=== PATIENT | female | born 1955 | race Caucasian/White ===

== ENCOUNTER 2017-12-05 09:36 | Outpatient (CLI) | payer OTHER ==
--- NOTE | 2017-12-05 12:57 | Mammography Report ---
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 Postoperative and posttreatment changes in the right breast and post biopsy changes in the left breast are noted. Coarse and punctate, typically benign calcifications are present. No suspicious masses, clustered microcalcifications, or regions of architectural distortion are identified. IMPRESSION: Probable benign postoperative and posttreatment changes in the right breast. RECOMMENDATION: Diagnostic right mammogram in 6 months. BIRADS CATEGORY 3: Probable benign findings STANDARD QUALIFYING STATEMENTS: 1. This examination was reviewed with the aid of Computer-Aided Detection (CAD). 2. A negative or benign imaging report should not delay biopsy if clinically suspicious findings are present. Consider surgical consultation if warrented. More than 5% of cancers are not identified by imaging. 3. Dense breasts may obscure an underlying neoplasm.
== END 2017-12-05 09:37 | disposition home or self-care (01) ==
LOC: DI 09:36
PROVIDERS: ATTEND Internal Medicine
DX: N64.89 Other specified disorders of breast (principal); Z85.3 Personal history of malignant neoplasm of breast
CPT/HCPCS: 77066

== ENCOUNTER 2018-02-25 13:32 | Emergency (ER) | payer OTHER ==
[2018-02-25] MEDS ORDERED: LIDOCAINE 2% 10 ML MDV SUBQ STA (13:51)
--- NOTE | 2018-02-25 13:54 | ED Physician Documentation ---
PD HPI UPPER EXT INJURY - Stated complaint Stated Complaint: FINGER LACERATION - Chief complaint Chief Complaint: Laceration - History obtained from History obtained from: Patient, Family - History of Present Illness Location: Right, Finger (index) Type of injury: Laceration (drill vs index finger) Where injury occurred: Home Timing - onset: Today Timing - duration: Hours (1) Timing - details: Abrupt onset Pain level max: 5 Pain level now: 5 Improved by: Rest, Immobilization Worsened by: Moving, Palpating Associated symptoms: No: Weakness, Numbness, Tingling, Swelling Contributing factors: No: Anticoagulated Similar symptoms before: Has not had sx before - Additonal information Additional information: pt is right handed. Td UTD 2013 Review of Systems Constitutional: denies: Fever, Chills Respiratory: denies: Cough Musculoskeletal: denies: Neck pain, Back pain Neurologic: denies: Focal weakness, Numbness PD PAST MEDICAL HISTORY - Past Medical History Cardiovascular: Hypertension Respiratory: None Neuro: None Endocrine/Autoimmune: None GI: None HAND PATCHER: None, Breast cancer : None HEENT: None Psych: None Musculoskeletal: None Derm: None - Past Surgical History /HAND PATCHER: Other - Allergies Allergies/Adverse Reactions: Allergies Allergy/AdvReac Type Severity Reaction Status Date / Time No Known Drug Allergies Allergy Verified 02/25/18 13:45 - Social History Does the pt smoke?: No Smoking Status: Never smoker Does the pt drink ETOH?: Yes Does the pt have substance abuse?: No - Immunizations Immunizations are current?: Yes - POLST Patient has POLST: No PD ED PE NORMAL - Vitals Vital signs reviewed: Yes - General General: Alert and oriented X 3, No acute distress - Derm Derm: Warm and dry - Extremities Extremities: Other (R index finger - flap laceration at MCP joint. FROM tendon tested vs resistance. NVI) - Neuro Neuro: Alert and oriented X 3 Results - Vitals Vitals: Vital Signs - 24 hr 02/25/18 13:38 Temperature 36.2 C L Heart Rate 72 Respiratory 16 Rate Blood Pressure 128/67 O2 Saturation 100 Oxygen O2 Source Room air - Rads (name of study) R index finger laceration Radiology: Prelim report reviewed, EMP read contemporaneously, See rad report (Soft tissue injury involving proximal palmar aspect of index finger. No bone injury seen. No retained foreign body identified. Exam otherwise as above. ) Procedures - Laceration (location) R index finger laceration Length in cm: 3 Wound type: Flap Neurovascular status: Sensory intact, Motor intact, Vascular intact Tendon involvement: Tendon intact Skin layer closure: Nylon, Size #-0 - enter number (4), Sutures - enter # (9) Other: Patient tolerated well, No complications, Neurovascular intact, Tetanus UTD Complexity: Simple PD MEDICAL DECISION MAKING - ED course Complexity details: reviewed results, re-evaluated patient, considered differential, d/w patient ED course: Patient is a 62-year-old female with a flap laceration to the right index finger. This was repaired. Tolerated well. No tendon injury. Neurovascularly intact. Warnings of infection and instructions on wound care given at bedside. Also counseled on how to minimize scarring. Patient counseled regarding signs and symptoms for which I believe and urgent re-evaluation would be necessary. Patient with good understanding of and agreement to plan and is comfortable going home at this time This document was made in part using voice recognition software. While efforts are made to proofread this document, sound alike and grammatical errors may occur. Tetanus is up-to-date - Sepsis Event Vital Signs: Vital Signs - 24 hr 02/25/18 13:38 Temperature 36.2 C L Heart Rate 72 Respiratory 16 Rate Blood Pressure 128/67 O2 Saturation 100 Oxygen O2 Source Room air Departure - Departure Disposition: 01 Home, Self Care Clinical Impression: Finger laceration Qualifiers: Encounter type: initial encounter Finger: index finger Damage to nail status: without damage Foreign body presence: without foreign body Laterality: right Qualified Code(s): S61.210A - Laceration without foreign body of right index finger without damage to nail, initial encounter Condition: Good Instructions: ED Laceration Hand Follow-Up: BLAZE WYMAN MD [Primary Care Provider] - (in 14 days for suture removal) Comments: You can apply antibiotic ointment twice daily. Keep the wound clean. Return if you notice redness swelling or drainage from the wound. Your x-rays do not show any acute abnormality today. Your sutures should be removed in 2 weeks with your doctor. Discharge Date/Time: 02/25/18 15:36
[2018-02-25 14:42] VITALS: BP 118/69
--- NOTE | 2018-02-25 14:51 | XRAY Report ---
Reason: index finger vs drill Procedure Date: 02/25/2018 Accession Number: [id number] / [id number] Procedure: XR - Finger(s) RT CPT Code: FULL RESULT: EXAM: RIGHT/LEFT 1st/2nd/3rd/4th/5th DIGIT RADIOGRAPHY EXAM DATE: 02/25/2018 02:24 PM. CLINICAL HISTORY: Index finger vs drill. COMPARISON: None. TECHNIQUE: 3 views. FINDINGS: Bones: Normal. No fracture or bone lesion. Joints: Mild degenerative arthritic change at the distal greater than proximal interphalangeal joint. MCP joint unremarkable. Soft Tissues: Soft tissue laceration involving the palmar aspect of second finger proximally. Soft tissue swelling. No retained radiopaque foreign body identified. Small amount of air in soft tissue. IMPRESSION: 1. Soft tissue injury involving proximal palmar aspect of index finger. 2. No bone injury seen. No retained foreign body identified. 3. Exam otherwise as above. RADIA
[2018-02-25] MEDS ORDERED: BACITRACIN OINT TOP STA (15:11)
== END 2018-02-25 15:36 | disposition home or self-care (01) ==
LOC: ED 13:32
DX: S61.210A Laceration without foreign body of right index finger without damage to nail, initial encounter (principal); W29.8XXA Contact with other powered hand tools and household machinery, initial encounter; Y92.009 Unspecified place in unspecified non-institutional (private) residence as the place of occurrence of the external cause
CPT/HCPCS: 12002; 73140; 99282; 99283; A9270

== ENCOUNTER 2018-11-17 09:24 | Outpatient (CLI) | payer MEDICARE, OTHER ==
--- NOTE | 2018-11-17 11:11 | Mammography Report ---
Reason: 2 YRS POST LUMPECTOMY Procedure Date: 11/17/2018 Accession Number: [id number] / [id number] Procedure: TOM - Diagnostic Dig RT CPT Code: FULL RESULT: EXAM: Diagnostic Dig RT DATE: 11/17/2018 10:30 AM CLINICAL HISTORY: Diagnostic examination. History of nulliparity and personal history of left breast cancer status post lumpectomy in 2017. TECHNIQUE: (R) - Right right CC, spot magnified CC, laterally exaggerated CC, MLO, ML, and spot magnified ML views are obtained. COMPARISON: 06/22/2018 and 12/05/2017. PARENCHYMAL PATTERN: (D) - The breast(s) demonstrate(s) heterogeneously dense fibroglandular parenchyma. FINDINGS: The right breast demonstrates expected interval evolution of post lumpectomy findings, probably benign. There are no suspicious masses, calcifications, or areas of distortion. IMPRESSION: Probably Benign. BI-RADS category 3. RECOMMENDATION: (12MOS) - Recommend 12 month follow-up exam. BI-RADS CATEGORY: (3) - Probably Benign. STANDARD QUALIFYING STATEMENTS: 1. This examination was not reviewed with the aid of Computer-Aided Detection (CAD). 2. A negative or benign imaging report should not preclude biopsy if clinically suspicious findings are present. 3. Dense breasts may obscure an underlying neoplasm. 4. This examination was reviewed with the aid of 3D breast imaging (tomosynthesis).
== END 2018-11-17 09:25 | disposition home or self-care (01) ==
LOC: DI 09:24
PROVIDERS: ATTEND Internal Medicine
DX: R92.8 Other abnormal and inconclusive findings on diagnostic imaging of breast (principal); Z85.3 Personal history of malignant neoplasm of breast
CPT/HCPCS: 77065; G0279

== ENCOUNTER 2018-11-25 10:11 | Outpatient (CLI) | payer MEDICARE, OTHER ==
--- NOTE | 2018-11-26 11:47 | MRI Report ---
Reason: BACK PAIN, RT GROIN PAIN >2YRS Procedure Date: 11/25/2018 Accession Number: [id number] / [id number] Procedure: MRI - Lumbar Spine W/O CPT Code: FULL RESULT: EXAM: MRI LUMBAR SPINE WITHOUT CONTRAST EXAM DATE: 11/25/2018 11:19 AM. CLINICAL HISTORY: Back pain, right groin pain 2 years. COMPARISON: LUMBAR SPINE 2 VIEW 11/23/2018 11:08 AM. TECHNIQUE: Multiplanar, multisequence T1-weighted and fluid-sensitive sequences of the lumbar spine from T12 to S1 without contrast. Other: None. FINDINGS: Spinal Canal: The conus terminates at L1. The conus medullaris and cauda equina are unremarkable. Alignment: Approximate 20 degrees curvature convex left between T11 and L3. Slight lower lumbar curvature convex right. No spondylolisthesis. Bone Marrow: Five [id number] lumbar vertebral bodies are assumed. No fracture. No destructive bone lesion. Small amount of diskogenic edema anteriorly on the left at L4-L5 and to a lesser degree L5-S1. Disk Levels/Facets: T12-L1: Unremarkable. L1-L2: Mild facet arthropathy. No stenosis. L2-L3: Mild facet arthropathy. Small broad-based foraminal protrusions. No stenosis. L3-L4: Mild facet arthropathy. Small broad-based foraminal protrusions without significant stenosis. L4-L5: Slight annular disk bulge and mild facet arthropathy without significant stenosis. L5-S1: Mild bilateral facet arthropathy and minimal disk bulge. No significant stenosis. Musculature: Normal. No edema or fatty atrophy. Other: The partially visualized retroperitoneum is unremarkable. IMPRESSION: 1. Thoracolumbar curvature convex left and lower lumbosacral curvature convex right. 2. Mild multilevel degenerative disk and facet arthropathy without significant associated canal or foraminal stenosis. Comment: The following findings are so common in adults without low back pain that while we report their presence, they must be interpreted with caution and in the context of the clinical situation. (Reference Lawrencek et al, Spine 2001) Prevalence of findings in patients without low back pain: Disk degeneration (any evidence): 92% Disk desiccation/T2 signal loss: 83% Disk height loss: 56% Disk bulge: 64% Disk protrusion: 32% Annular tear/high intensity zone: 38% RADIA
== END 2018-11-25 10:12 | disposition home or self-care (01) ==
LOC: DI 10:11
PROVIDERS: ATTEND Orthopaedic Surgery
DX: M51.36 Other intervertebral disc degeneration, lumbar region (principal); M25.551 Pain in right hip
CPT/HCPCS: 72148

== ENCOUNTER 2019-01-07 07:01 | Day surgery (SDC) | payer MEDICARE, OTHER ==
[~2019-01-07 07:01] MED LIST: CYCLOPENTOLATE 1% OPHTH DROPS 2 ML ONE; KETOROLAC 0.45% OPHTH DROPS ONE; PHENYLEPHRINE 2.5% OPHTH 2 ML DROPS ONE; PROPARACAINE 0.5% OPHTH DROPS 15 ML ONE
[2019-01-07] MEDS ORDERED: LACTATED RINGERS 500 ML IV ONE (07:17)
[2019-01-07] MEDS ORDERED: PHENYLEPHRINE 2.5% OPHTH 2 ML DROPS LEFTEYE ONE (07:20)
[2019-01-07] MEDS ORDERED: KETOROLAC 0.45% OPHTH DROPS LEFTEYE ONE (07:20)
[2019-01-07] MEDS ORDERED: PROPARACAINE 0.5% OPHTH DROPS 15 ML LEFTEYE ONE (07:20)
[2019-01-07] MEDS ORDERED: CYCLOPENTOLATE 1% OPHTH DROPS 2 ML LEFTEYE ONE (07:20)
--- NOTE | 2019-01-07 07:43 | ANESTHESIA ---
Pre-Anesthesia VS, & Labs - Diagnosis L senile combined cataract - Procedure L laser assisted cataract extraction w IOL Vital Signs: Temp Pulse Resp BP Pulse Ox 36.1 C L 64 18 149/87 H 99 01/07/19 07:17 01/07/19 07:17 01/07/19 07:17 01/07/19 07:17 01/07/19 07:17 Height 5 ft 4 in Weight (kg) 62.6 kg Body Mass Index 22.3 - NPO >8 hours - Is Patient ?: No Home Medications and Allergies Home Medications: Ambulatory Orders Citalopram Hydrobromide [Citalopram HBr] 20 mg PO DAILY 01/06/19 Losartan Potassium 25 mg PO DAILY 01/06/19 Raloxifene HCl 60 mg PO DAILY 01/06/19 Citalopram Hydrobromide [Citalopram HBr] 20 mg PO DAILY 01/06/19 Losartan Potassium 25 mg PO DAILY 01/06/19 Raloxifene HCl 60 mg PO DAILY 01/06/19 Allergies/Adverse Reactions: Allergies Allergy/AdvReac Type Severity Reaction Status Date / Time No Known Drug Allergies Allergy Verified 01/07/19 07:17 Anes History & Medical History - Anesthetic History Anesthesia Complications: reports: No previous complications Family history of Anesthesia Complications: Denies Family history of Malignant Hyperthermia: Denies - Medical History Cardiovascular: reports: Hypertension Pulmonary: reports: None Gastrointestinal: reports: None Urinary: reports: None Neuro: reports: None Musculoskeletal: reports: None Endocrine/Autoimmune: reports: None Blood Disorders: reports: None Skin: reports: None Smoking Status: Never smoker - Surgical History General: Colonoscopy Gynecologic: Hysterectomy, Other Exam General: Alert, Oriented x3, Cooperative Dental: WNL Mouth Openin Fingerbreadth Neck Mobility: Normal Mallampati classification: II Thyromental Distance: 4-6 cm Respiratory: Lungs clear, Normal breath sounds, No respiratory distress Cardiovascular: Regular rate Neurological: Normal speech Mental/Cognitive Status: Alert/Oriented X3, Normal for patient Cognitive Status: Within normal limits Plan Anesthesia Type: MAC Consent for Procedure(s) Verified and Reviewed: Yes Code Status: Attempt Resuscitation ASA classification: 2-Mild systemic disease Is this case an emergency?: No
[2019-01-07] MEDS ORDERED: MIDAZOLAM 2 MG/2 ML VIAL IVP ONE (09:00)
[2019-01-07] MEDS ORDERED: BRIMONIDINE 0.2% OPHTH DROPS 5 ML OPTH ONE (09:07)
[2019-01-07] MEDS ORDERED: CHONDR SULF/HYALURONATE SYRINGE IO ONE (09:07)
[2019-01-07] MEDS ORDERED: EPINEPHrine 1 MG/ML AMP IVP ONE (09:07)
[2019-01-07] MEDS ORDERED: TIMOLOL 0.5% OPHTH DROPS OPTH ONE (09:07)
[2019-01-07] MEDS ORDERED: BSS/LIDOCAINE/EPINEPHRINE 1 ML SYRINGE IO ONE (09:08)
[2019-01-07] MEDS ORDERED: TRIAMCIN/MOXIFLOX OPHTHALMIC 0.6 ML VIAL IO ONE (09:08)
[2019-01-07] MEDS ORDERED: VANCOMYCIN OPHTHALMI 8MG/0.8ML 8 MG/0.8 ML SYRINGE IO ONE (09:08)
[2019-01-07 09:33] VITALS: BP 134/80
--- NOTE | 2019-01-07 10:52 | OPERATIVE REPORT ---
DATE OF SERVICE: 01/07/2019 Physician: Vaughn Hartley MD PREOPERATIVE DIAGNOSIS: Visually significant cataract, left eye. This was her first cataract surger y. POSTOPERATIVE DIAGNOSIS: Visually significant cataract, left eye. This was her first cataract surge ry. DESCRIPTION OF PROCEDURE: Phacoemulsification with posterior chamber intraocular lens implant, left eye with laser assist. SURGEON: Vaughn Hartley MD ANESTHESIA: Monitored anesthesia care. COMPLICATIONS: None. OPERATIVE INDICATIONS: This is a 63-year-old woman with progressive vision loss in the left eye due to 1+ nuclear sclerotic, 3+ cortical and anterior spoke cataracts in the visual axis. Best corrected visual acuity was 20/30 with glare to 20/60 in the left eye. Indications for surgery were difficult y reading, difficulty seeing words, closed caption or game scores on TV, difficulty seeing street sig ns, difficulty driving in low light or at night, difficulty driving at night because of headlights fr om other vehicles, difficulty with glare or bright lights in any situation, and difficulty tracking a golf ball. She was consented at length concerning risks and benefits of cataract surgery, after whi ch she expressed a desire to proceed with surgery. OPERATIVE PROCEDURE: The patient was taken to OR #3 and placed under monitored anesthesia care. Justin gical timeout was conducted confirming correct patient, correct procedure, and correct surgical site. She was placed on the LenSx laser and her eye was docked to the laser interface. The laser perform ed the capsulotomy, lens softening, phaco wounds and arcuate keratotomy incisions. She was then move d to the operating microscope, given topical anesthesia, and prepped and draped in the usual sterile fashion. The eye was entered at the 6 and 3 o'clock positions. Intracameral Shugarcaine was injecte d into the anterior chamber followed by Viscoat. The capsulorrhexis flap created by the LenSx laser was removed from the anterior chamber. The nucleus was hydrodissected and phacoemulsified. The romaine ex was evacuated using automated infusion and aspiration. Provisc was injected in the capsular bag, and a 16.0 diopter intraocular lens inserted in the bag. Approximately 0.8 mL mixture of triamcinolo ne, moxifloxacin and vancomycin was then injected subconjunctivally in the superior quadrant for infe ction and inflammation prophylaxis. I and A, was used to evacuate the viscoelastic materials. The e ye was inflated to physiologic pressure using balanced salt solution and found to be watertight. The patient was taken from the operating room in good condition and given postoperative instructions. TD: 01/07/2019 10:24
== END 2019-01-07 07:02 | disposition home or self-care (01) ==
LOC: SDS 07:01
PROVIDERS: ATTEND Ophthalmology
PROC: 08RK3JZ Replacement of Left Lens with Synthetic Substitute, Percutaneous Approach (ICD-10-PCS; principal; 2019-01-07 08:30)
DX: H25.812 Combined forms of age-related cataract, left eye (principal); I10 Essential (primary) hypertension; Z79.899 Other long term (current) drug therapy; Z79.82 Long term (current) use of aspirin
CPT/HCPCS: 66984; A9270; J3490; V2632

== ENCOUNTER 2019-02-25 07:25 | Day surgery (SDC) | payer MEDICARE, OTHER ==
[~2019-02-25 07:25] MED LIST changes: +BRIMONIDINE 0.2% OPHTH DROPS 5 ML ONE; +BSS/LIDOCAINE/EPINEPHRINE 1 ML SYRINGE ONE; +EPINEPHrine 1 MG/ML AMP ONE; +TIMOLOL 0.5% OPHTH DROPS ONE; +TRIAMCIN/MOXIFLOX OPHTHALMIC 0.6 ML VIAL IO ONE; +VANCOMYCIN OPHTHALMI 8MG/0.8ML 8 MG/0.8 ML SYRINGE IO ONE
[2019-02-25] MEDS ORDERED: MIDAZOLAM 2 MG/2 ML VIAL IVP ONE (07:26)
[2019-02-25] MEDS ORDERED: LACTATED RINGERS 500 ML IV ONE (07:38)
[2019-02-25] MEDS ORDERED: PHENYLEPHRINE 2.5% OPHTH 2 ML DROPS RIGHTEYE ONE (07:40)
[2019-02-25] MEDS ORDERED: KETOROLAC 0.45% OPHTH DROPS RIGHTEYE ONE (07:40)
[2019-02-25] MEDS ORDERED: CYCLOPENTOLATE 1% OPHTH DROPS 2 ML RIGHTEYE ONE (07:40)
[2019-02-25] MEDS ORDERED: PROPARACAINE 0.5% OPHTH DROPS 15 ML RIGHTEYE ONE ×2 (07:40→09:24)
--- NOTE | 2019-02-25 08:13 | ANESTHESIA ---
Pre-Anesthesia VS, & Labs - Diagnosis Right nuclear sclerotic cataract - Procedure Right phaco with IOL Vital Signs: Temp Pulse Resp BP Pulse Ox 36.3 C L 70 20 132/95 H 99 02/25/19 07:38 02/25/19 07:38 02/25/19 07:38 02/25/19 07:38 02/25/19 07:38 Height 5 ft 4 in Weight (kg) 62 kg Body Mass Index 22.3 - NPO >8 hours, Other (Water with pills at 0600) - Is Patient ?: Not Applicable - Lab Results Lab results reviewed: No Home Medications and Allergies Citalopram Hydrobromide [Citalopram HBr] 20 mg PO DAILY 01/06/19 Raloxifene HCl 60 mg PO DAILY 01/06/19 Allergies/Adverse Reactions: Allergies Allergy/AdvReac Type Severity Reaction Status Date / Time No Known Drug Allergies Allergy Verified 02/24/19 13:36 Anes History & Medical History - Anesthetic History Anesthesia Complications: reports: No previous complications Family history of Anesthesia Complications: Denies Family history of Malignant Hyperthermia: Denies - Medical History Cardiovascular: reports: None Pulmonary: reports: None Gastrointestinal: reports: None Urinary: reports: None Neuro: reports: None Musculoskeletal: reports: None Endocrine/Autoimmune: reports: None Blood Disorders: reports: None Skin: reports: None Smoking Status: Never smoker Psychosocial: reports: No issues indicated - Surgical History General: Colonoscopy Eyes Ears Nose Throat (EENT): Cataracts Gynecologic: Hysterectomy, Other Exam General: Alert Dental: WNL Mouth Opening: Greater than 4 Fingerbreadths Neck Mobility: Normal Mallampati classification: I Thyromental Distance: greater than 6 cm Respiratory: Lungs clear Cardiovascular: Regular rate Neurological: Normal speech Mental/Cognitive Status: Alert/Oriented X3, Normal for patient Cognitive Status: Within normal limits Plan Anesthesia Type: MAC Consent for Procedure(s) Verified and Reviewed: Yes Code Status: Attempt Resuscitation ASA classification: 1-Healthy patient Is this case an emergency?: No
[2019-02-25] MEDS ORDERED: BRIMONIDINE 0.2% OPHTH DROPS 5 ML OPTH ONE (09:22)
[2019-02-25] MEDS ORDERED: EPINEPHrine 1 MG/ML AMP IR ONE (09:22)
[2019-02-25] MEDS ORDERED: BSS/LIDOCAINE/EPINEPHRINE 1 ML SYRINGE IO ONE (09:23)
[2019-02-25] MEDS ORDERED: CHONDR SULF/HYALURONATE SYRINGE IO ONE (09:23)
[2019-02-25] MEDS ORDERED: TIMOLOL 0.5% OPHTH DROPS OPTH ONE (09:23)
[2019-02-25] MEDS ORDERED: VANCOMYCIN OPHTHALMI 8MG/0.8ML 8 MG/0.8 ML SYRINGE IO ONE (09:24)
[2019-02-25] MEDS ORDERED: TRIAMCIN/MOXIFLOX OPHTHALMIC 0.6 ML VIAL IO ONE (09:25)
[2019-02-25 10:10] VITALS: BP 147/82
--- NOTE | 2019-02-25 11:15 | OPERATIVE REPORT ---
DATE OF SERVICE: 02/25/2019 Physician: Vaughn Hartley MD PREOPERATIVE DIAGNOSIS: Visually significant cataract, right eye. Cataract surgery was performed on the left eye on 01/07/2019. POSTOPERATIVE DIAGNOSIS: Visually significant cataract, right eye. Cataract surgery was performed on the left eye on 01/07/2019. PROCEDURE: Phacoemulsification with posterior chamber intraocular lens implant, right eye. SURGEON: Vaughn Hartley MD ANESTHESIA: Monitored anesthesia care. COMPLICATIONS: None. OPERATIVE INDICATIONS: This is a 63-year-old woman with progressive vision loss in the right eye due to 1+ nuclear sclerotic and 2+ cortical cataract. Best corrected visual acuity was 20/25, with glare to 20/40 in the right eye. Indications for surgery are overall decrease in vision, difficulty seeing words on a computer screen, difficulty driving in low light or at night, difficulty driving at night because headlights from other vehicles, and difficulty tracking a golf ball. She was consented at length concerning risks and benefits of cataract surgery, after which she expressed a desire to proceed with surgery. OPERATIVE PROCEDURE: Patient was taken into OR #3 and placed under monitored anesthesia care. Surgical timeout was conducted confirming correct patient, correct procedure, and correct surgical site. She was given topical anesthesia, and prepped and draped in the usual sterile fashion. The eye was entered at the 12 and 9 o'clock positions. Intracameral Shugarcaine was injected into the anterior chamber, followed by Viscoat. A continuous-tear curvilinear capsulorrhexis was performed. The nucleus was hydrodissected and phacoemulsified. The cortex was evacuated using automated infusion and aspiration. Provisc was injected in the capsular bag, and a 19.5 diopter intraocular lens inserted in the bag. Approximately 0.8 mL of a mixture of triamcinolone, moxifloxacin and vancomycin was injected subconjunctivally in the superior quadrant for infection and inflammation prophylaxis. I and A was used to evacuate the viscoelastic materials. The self-sealing wound was found to be leaking so a single 10-0 nylon suture was placed across the wound. The eye was inflated to physiologic pressure using balanced salt solution and found to be watertight with the suture in place. Patient was taken from the operating room in good condition and given postoperative instructions. TD: 02/25/2019 10:46 MILADIS
== END 2019-02-25 07:26 | disposition home or self-care (01) ==
LOC: SDS 07:25
PROVIDERS: ATTEND Ophthalmology
PROC: 08RJ3JZ Replacement of Right Lens with Synthetic Substitute, Percutaneous Approach (ICD-10-PCS; principal; 2019-02-25 09:00)
DX: H25.811 Combined forms of age-related cataract, right eye (principal); I10 Essential (primary) hypertension; Z79.899 Other long term (current) drug therapy; Z79.82 Long term (current) use of aspirin; Z98.42 Cataract extraction status, left eye
CPT/HCPCS: 66984; A9270; J3490; V2632

== ENCOUNTER 2020-11-21 10:49 | Outpatient (CLI) | payer MEDICARE, OTHER ==
--- NOTE | 2020-11-21 12:19 | DEXA Report ---
PROCEDURE: Dexa Spine and/or Hip INDICATIONS: POST MENOPAUSAL TECHNIQUE: Dual energy x-ray absorptiometry (DXA) was performed on a Natural Convergence System. Regions measur ed are the AP Spine, femoral neck, and if needed forearm. COMPARISON: None. FINDINGS: Lumbar Spine: Bone Mineral Density 0.928 g/cm/cm,T score -2.1, moderate osteopenia Left Hip: Bone Mineral Density 0.868 g/cm/cm,T score -1.1, borderline osteopenia Left Femoral Neck: Bone Mineral Density 0.849 g/cm/cm, T score -1.4, mild osteopenia (T score greater or equal to -1.0: NORMAL) (T score from -1.1 to -2.4: OSTEOPENIA) (T score less than or equal to -2.5 to: OSTEOPOROSIS) Impression: Osteopenia most prominent in the left femoral neck. Patients with diagnosis of osteoporosis or osteopenia should have regular bone mineral density assess ment. For those eligible for Medicare, routine testing is allowed once every 2 years. Testing frequ ency can be increased for patients who have rapidly progressing disease or for those who are receivin g medical therapy to restore bone mass. Reviewed by: Keysha Kearney MD on 11/21/2020 12:18 PM PDT Approved by: Keysha Kearney MD on 11/21/2020 12:18 PM PDT Station ID: [id number]
== END 2020-11-21 10:50 | disposition home or self-care (01) ==
LOC: DI 10:49
PROVIDERS: ATTEND Registered Nurse
DX: M85.89 Other specified disorders of bone density and structure, multiple sites (principal)

== ENCOUNTER 2020-11-28 08:16 | Outpatient (CLI) | payer MEDICARE, OTHER ==
[2020-11-28 08:42] LABS: BASOPHILS % (AUTO) 0.5 %; EOSINOPHILS # (AUTO) 0.1 10^3/uL (0.0-0.7); EOSINOPHILS % (AUTO) 2.5 %; HCT - HEMATOCRIT 39.1 % (37.0-47.0); LYMPHOCYTES # (AUTO) 1.1 10^3/uL (1.5-3.5); LYMPHOCYTES % (AUTO) 25.2 %; MEAN CORPUSCULAR HEMOGLOBIN 31.9 pg (27.0-31.0); MEAN CORPUSCULAR HGB CONC 33.2 g/dL (32.0-36.0); MEAN CORPUSCULAR VOLUME 95.8 fL (81.0-99.0); MEAN PLATELET VOLUME 8.5 fL (7.9-10.8); MONOCYTES # (AUTO) 0.4 10^3/uL (0.0-1.0); MONOCYTES % (AUTO) 9.5 %; NEUTROPHILS # (AUTO) 2.7 10^3/uL (1.5-6.6); NEUTROPHILS % (AUTO) 62.1 %; PLT - PLATELET COUNT 239 10^3/uL (130-450); RED BLOOD COUNT 4.08 10^6/uL (4.20-5.40); RED CELL DISTRIBUTION WIDTH 13.5 % (12.0-15.0); WHITE BLOOD COUNT 4.3 x10^3/uL (4.8-10.8)
[2020-11-28 09:01] LABS: ALBUMIN 4.3 g/dL (3.2-5.5); ALBUMIN/GLOBULIN RATIO 1.6 (1.0-2.2); ALKALINE PHOSPHATASE 51 IU/L (42-121); ALT ALANINE AMINOTRANSFERASE 20 IU/L (10-60); AST ASPARTATE AMINOTRANSFERASE 23 IU/L (10-42); BUN - BLOOD UREA NITROGEN 14 mg/dL (6-20); CALCIUM 9.1 mg/dL (8.5-10.3); CARBON DIOXIDE - CO2 29 mmol/L (21-32); CHLORIDE 100 mmol/L (101-111); CHOL/HDL RATIO 2.1 (<4.4); CHOLESTEROL 205 mg/dL; CREATININE 0.6 mg/dL (0.4-1.0); GFR - MDRD 100 (>89); GLUCOSE 106 mg/dL (70-100); HDL CHOLESTEROL 98 mg/dL; LDL CHOLESTEROL,CALCULATED 93 mg/dL; LDL/HDL RATIO 0.9 (<4.4); POTASSIUM 4.7 mmol/L (3.5-5.0); SODIUM 137 mmol/L (135-145); TRIGLYCERIDES 70 mg/dL; VLDL CHOLESTEROL 14 mg/dL
[2020-11-28 09:15] LABS: THYROID STIMULATING HORMONE 1.7 uIU/mL (0.34-5.60)
[2020-11-29 12:46] LABS: HEPATITIS C ANTIBODY NON-REACTIVE (NON-REACTIVE)
== END 2020-11-28 08:17 | disposition home or self-care (01) ==
LOC: LAB 08:16
PROVIDERS: ATTEND Internal Medicine
DX: R53.83 Other fatigue (principal); Z11.59 Encounter for screening for other viral diseases; Z13.220 Encounter for screening for lipoid disorders
CPT/HCPCS: 36415; 80053; 80061; 83721; 84443; 85025; 86803

== ENCOUNTER 2021-12-04 12:01 | Emergency (ER) | payer MEDICARE, OTHER ==
--- NOTE | 2021-12-04 12:13 | ED Physician Documentation ---
PD HPI LOWER EXT INJURY - Stated complaint Stated Complaint: LT ANKLE INJ - History obtained from History obtained from: Patient - Additional information Additional information: She had a trip and fall in her yard a couple of hours ago. She has a contusion on the right burton that hurts the most but she also has hurt on the left lateral foot. She is able to walk and bear weight. No other injuries. Declines pain medication on initial evaluation. Review of Systems Constitutional: reports: Reviewed and negative Eyes: reports: Reviewed and negative Ears: reports: Reviewed and negative Cardiac: reports: Reviewed and negative Respiratory: reports: Reviewed and negative PD PAST MEDICAL HISTORY - Past Medical History Cardiovascular: None Respiratory: None Neuro: None Endocrine/Autoimmune: None GI: None LABOR SPECIALIST: None, Breast cancer : None HEENT: Chronic vision loss Psych: Anxiety Musculoskeletal: None Derm: None - Past Surgical History General: Colonoscopy /LABOR SPECIALIST: Hysterectomy, Other HEENT: Cataracts - Present Medications Home Medications: Ambulatory Orders Medication Instructions Recorded Confirmed Citalopram Hydrobromide 20 mg PO DAILY 01/06/19 02/24/19 [Citalopram HBr] Raloxifene HCl 60 mg PO DAILY 01/06/19 02/24/19 - Allergies Allergies/Adverse Reactions: Allergies Allergy/AdvReac Type Severity Reaction Status Date / Time No Known Drug Allergies Allergy Verified 02/24/19 13:36 - Social History Does the pt smoke?: No Smoking Status: Never smoker Does the pt drink ETOH?: Yes Does the pt have substance abuse?: No - Immunizations Immunizations are current?: Yes - POLST Patient has POLST: No PD ED PE NORMAL - Vitals Vital signs reviewed: Yes - General General: Alert and oriented X 3, No acute distress - HEENT HEENT: PERRL, EOMI - Neck Neck: Supple, no meningeal sign, No bony TTP - Extremities Extremities: Other (Mild tenderness at the proximal fifth metatarsal, no ankle tenderness on the left. She has a large contusion over the upper anterior mid right burton that is tender but without pain out of proportion or pain with passive range of motion to suggest compartment syndrome.) - Neuro Neuro: Alert and oriented X 3, Normal speech Results - Vitals Vitals: Vital Signs - 24 hr 12/04/21 12:10 Temperature 36.4 C L Heart Rate 78 Respiratory 18 Rate Blood Pressure 108/90 H O2 Saturation 100 Oxygen O2 Source Room air - Rads (name of study) X-rays of the right tib-fib and left foot are negative Radiology: EMP read contemporaneously Departure - Departure Disposition: 01 Home, Self Care Clinical Impression: Sprain of left foot Qualifiers: Encounter type: initial encounter Qualified Code(s): S93.602A - Unspecified sprain of left foot, initial encounter Contusion of right leg Qualifiers: Encounter type: initial encounter Qualified Code(s): S80.11XA - Contusion of right lower leg, initial encounter Condition: Good Record reviewed to determine appropriate education?: Yes Instructions: ED Contusion Soft Tissue, ED Sprain Foot Follow-Up: Orthopedic Care [Provider Group] Comments: You were seen today for a left foot sprain and a contusion to the right burton. If either of these are not much better over the next few days to week, follow-up with orthopedics for reevaluation, the numbers on this form and you can call for an appointment. You can ice and elevate, take Tylenol and/or ibuprofen as needed for the pain. Return for new or worsening symptoms. Discharge Date/Time: 12/04/21 12:40
[2021-12-04 12:16] VITALS: BP 108/90
--- NOTE | 2021-12-04 13:44 | XRAY Report ---
PROCEDURE: Foot 3 View LT INDICATIONS: foot inj TECHNIQUE: 3 views of the foot were acquired. COMPARISON: None FINDINGS: Bones: No fractures or dislocations. No suspicious bony lesions. Tiny calcaneal spur Soft tissues: No tibiotalar joint effusion. Achilles tendon appears normal. IMPRESSION: No evidence of fracture or foreign body Reviewed by: Kevin Burgess MD on 12/04/2021 12:43 PM DEO Approved by: Kevin Burgess MD on 12/04/2021 12:43 PM AKLLUVIA Station ID: [id number]
--- NOTE | 2021-12-04 13:45 | XRAY Report ---
PROCEDURE: Tib/Fib RT INDICATIONS: leg inj TECHNIQUE: 2 views of the tibia and fibula were acquired. COMPARISON: None FINDINGS: Bones: No fractures or dislocations. No suspicious bony lesions. Soft tissues: No suspicious soft tissue calcifications or masses. IMPRESSION: Unremarkable tibia and fibula radiographs Reviewed by: Kevin Burgess MD on 12/04/2021 12:43 PM AKDT Approved by: Kevin Burgess MD on 12/04/2021 12:43 PM AKDT Station ID: [id number]
== END 2021-12-04 12:40 | disposition home or self-care (01) ==
LOC: ED 12:01
DX: S93.602A Unspecified sprain of left foot, initial encounter (principal); S80.11XA Contusion of right lower leg, initial encounter; W01.0XXA Fall on same level from slipping, tripping and stumbling without subsequent striking against object, initial encounter; Y92.007 Garden or yard of unspecified non-institutional (private) residence as the place of occurrence of the external cause
CPT/HCPCS: 99282; 99283

== ENCOUNTER 2022-08-26 09:54 | Outpatient (CLI) | payer MEDICARE, OTHER ==
--- NOTE | 2022-08-27 15:14 | Mammography Report ---
BILATERAL DIGITAL SCREENING MAMMOGRAM 3D/2D: 08/26/2022 CLINICAL: Routine screening. Personal history of right breast cancer. Comparison is made to exams dated: 12/05/2017 mammogram, 11/17/2018 mammogram - [facility], 06/22/2018 mammogram, 06/09/2019 mammogram, 06/12/2020 mammogram, and 07/26/2021 mammogram - [facility]. Both breasts are heterogeneously dense, which may obscure small masses (category c / 51-75% glandular tissue). There are benign calcifications in both breasts. There also are benign post operative findings in th e right breast. No significant masses, calcifications, or other findings are seen in either breast. There has been no significant interval change. IMPRESSION: BENIGN There is no mammographic evidence of malignancy. A 1 year screening mammogram is recommended. This exam was interpreted at Station ID: [id number]. NOTE: For mammograms, a report in lay terms will be sent to the patient. Approximately 15% of breast malignancies will not be visualized mammographically. In the management of a palpable breast mass, a negative mammogram must not discourage biopsy of a clinically suspicious lesion. Electronically Signed By: Maribell rahman/edgard:08/26/2022 17:18:53 letter sent: No_Letter ACR BI-RADS Category 2: Benign Finding(s) 3342F PARENCHYMAL PATTERN: (D) - The breast(s) demonstrate(s) heterogeneously dense fibroglandular jennifer hightower. BI-RADS CATEGORY: (2) - 2 Mammogram [id number] 1 year screening LATERALITY: (B)
== END 2022-08-26 09:55 | disposition home or self-care (01) ==
LOC: DI 09:54
PROVIDERS: ATTEND Internal Medicine Hematology & Oncology
DX: Z12.31 Encounter for screening mammogram for malignant neoplasm of breast (principal); Z85.3 Personal history of malignant neoplasm of breast

== ENCOUNTER 2023-09-08 10:07 | Outpatient (CLI) | payer MEDICARE, OTHER ==
--- NOTE | 2023-09-09 09:24 | Mammography Report ---
BILATERAL DIGITAL SCREENING MAMMOGRAM 3D/2D: 09/08/2023 CLINICAL: Routine screening. Personal history of right breast cancer. Comparison is made to exams dated: 08/26/2022 mammogram - Merg[facility] with [facility], 07/26/2021 mammo gram, 06/12/2020 mammogram, 06/09/2019 mammogram, 06/22/2018 mammogram - [facility], and 11/17/2018 mammogram - [facility] with [facility]. Both breasts are heterogeneously dense, which may obscure small masses (category c / 51-75% glandular tissue). There are benign calcifications in both breasts. There also are benign post operative findings in th e right breast. No significant masses, calcifications, or other findings are seen in either breast. There has been no significant interval change. IMPRESSION: BENIGN There is no mammographic evidence of malignancy. A 1 year screening mammogram is recommended. This exam was interpreted at Station ID: [id number]. NOTE: For mammograms, a report in lay terms will be sent to the patient. Approximately 15% of breast malignancies will not be visualized mammographically. In the management of a palpable breast mass, a negative mammogram must not discourage biopsy of a clinically suspicious lesion. Electronically Signed By: Maribell rahman/edgard:09/08/2023 16:26:03 letter sent: No_Letter ACR BI-RADS Category 2: Benign Finding(s) 3342F PARENCHYMAL PATTERN: (D) - The breast(s) demonstrate(s) heterogeneously dense fibroglandular jennifer hightower. BI-RADS CATEGORY: (2) - 2 RECOMMENDATION: (ANNUAL) - Recommend routine annual screening mammography. [id number] 1 year screening LATERALITY: (B)
== END 2023-09-08 10:08 | disposition home or self-care (01) ==
LOC: DI 10:07
DX: Z12.31 Encounter for screening mammogram for malignant neoplasm of breast (principal); R92.333 Mammographic heterogeneous density, bilateral breasts

== ENCOUNTER 2023-09-11 16:17 | Outpatient (CLI) | payer MEDICARE, OTHER ==
[2023-09-11 16:31] LABS: BASOPHILS # (AUTO) 0.1 10^3/uL (0.0-0.1); BASOPHILS % (AUTO) 0.8 %; EOSINOPHILS # (AUTO) 0.2 10^3/uL (0.0-0.7); EOSINOPHILS % (AUTO) 2.3 %; HCT - HEMATOCRIT 38.8 % (37.0-47.0); HGB - HEMOGLOBIN 12.8 g/dL (12.0-16.0); MEAN CORPUSCULAR HEMOGLOBIN 31.2 pg (27.0-31.0); MEAN CORPUSCULAR VOLUME 94.6 fL (81.0-99.0); MEAN PLATELET VOLUME 8.2 fL (7.9-10.8); MONOCYTES # (AUTO) 0.7 10^3/uL (0.0-1.0); MONOCYTES % (AUTO) 8.9 %; NEUTROPHILS # (AUTO) 4.4 10^3/uL (1.5-6.6); NEUTROPHILS % (AUTO) 60.7 %; PLT - PLATELET COUNT 267 10^3/uL (130-450); RED CELL DISTRIBUTION WIDTH 13.8 % (12.0-15.0); WHITE BLOOD COUNT 7.3 x10^3/uL (4.8-10.8)
[2023-09-11 16:50] LABS: CALCIUM 9.6 mg/dL (8.5-10.3); CREATININE 0.7 mg/dL (0.6-1.3); POTASSIUM 3.8 mmol/L (3.5-4.5)
[2023-09-11 17:00] LABS: THYROID STIMULATING HORMONE 2.19 uIU/mL (0.34-5.60)
== END 2023-09-11 16:18 | disposition home or self-care (01) ==
LOC: LAB 16:17
PROVIDERS: ATTEND Physician Assistant Medical
DX: R00.2 Palpitations (principal)
CPT/HCPCS: 36415; 80048; 84443; 85025

== ENCOUNTER 2023-11-14 11:23 | Day surgery (SDC) | payer MEDICARE, OTHER ==
[~2023-11-14 11:23] MED LIST changes: -BRIMONIDINE 0.2% OPHTH DROPS 5 ML ONE; -BSS/LIDOCAINE/EPINEPHRINE 1 ML SYRINGE ONE; -CYCLOPENTOLATE 1% OPHTH DROPS 2 ML ONE; -EPINEPHrine 1 MG/ML AMP ONE; -KETOROLAC 0.45% OPHTH DROPS ONE; -PHENYLEPHRINE 2.5% OPHTH 2 ML DROPS ONE; -PROPARACAINE 0.5% OPHTH DROPS 15 ML ONE; +PROPOFOL 500 MG/50 ML 500 MG/50 ML VIAL ONE; -TIMOLOL 0.5% OPHTH DROPS ONE; -TRIAMCIN/MOXIFLOX OPHTHALMIC 0.6 ML VIAL IO ONE; -VANCOMYCIN OPHTHALMI 8MG/0.8ML 8 MG/0.8 ML SYRINGE IO ONE
[2023-11-14] MEDS: LACTATED RINGERS 1,000 ML IV ONE (11:29)
[2023-11-14] MEDS ORDERED: LIDOCAINE-MPF 2% 5 ML VIAL ONE (12:05)
--- NOTE | 2023-11-14 12:14 | ANESTHESIA ---
Pre-Anesthesia VS, & Labs - Diagnosis SCREENING - Procedure COLONOSCOPY Vital Signs: Temp Pulse Resp BP Pulse Ox O2 Flow Rate 36.6 C 79 18 135/91 H 95 11/14/23 11:32 11/14/23 11:32 11/14/23 11:32 11/14/23 11:32 11/14/23 11:32 Height: 5 ft 3 in Weight (kg): 61 kg Body Mass Index: 23.8 BMI Classification: Normal - NPO >8 hours Last Fluid Intake: 0430 - Is Patient ?: No Home Medications and Allergies Home Medications: Ambulatory Orders Losartan Potassium 25 mg PO DAILY 11/13/23 Citalopram Hydrobromide [Citalopram HBr] 20 mg PO DAILY 01/06/19 Losartan Potassium 25 mg PO DAILY 11/13/23 Allergies/Adverse Reactions: Allergies Allergy/AdvReac Type Severity Reaction Status Date / Time No Known Drug Allergies Allergy Verified 11/14/23 11:34 Anes History & Medical History - Anesthetic History Anesthesia Complications: reports: No previous complications - Medical History Cardiovascular: reports: Hypertension Pulmonary: reports: None Gastrointestinal: reports: None Urinary: reports: None Neuro: reports: None Musculoskeletal: reports: None Endocrine/Autoimmune: reports: None Blood Disorders: reports: None Skin: reports: None Smoking Status: Never smoker Psychosocial: reports: No issues indicated - Surgical History General: reports: Colonoscopy Eyes Ears Nose Throat (EENT): reports: Cataracts Gynecologic: reports: Hysterectomy, Other Results - EKG Results EKG Comparison: Reviewed EKG Exam General: Alert Dental: WNL Mouth Openin Fingerbreadth Neck Mobility: Normal Mallampati classification: II Thyromental Distance: 4-6 cm Plan Anesthesia Type: Total IV Consent for Procedure(s) Verified and Reviewed: Yes Code Status: Attempt Resuscitation ASA classification: 2-Mild systemic disease Is this case an emergency?: No
[2023-11-14] MEDS: LACTATED RINGERS 400 ML IV ONE (13:35)
[2023-11-14 13:56] VITALS: BP 121/98; O2SAT 98
--- NOTE | 2023-11-14 14:46 | ANESTHESIA POST OP EVALUATION ---
Anesthesia Post Eval - Post Anesthesia Eval Vitals: Last Vital Signs Temp 36.2 C L 11/14/23 13:35 Pulse 62 11/14/23 13:49 Resp 14 11/14/23 13:49 BP 121/98 H 11/14/23 13:49 Pulse Ox 98 11/14/23 13:49 O2 Flow Rate CV Function Including HR & BP: Stable Pain Control: Satisfactory Nausea & Vomiting: Negative Mental Status: Baseline Respiratory Status: Airway Patent Hydration Status: Satisfactory Anesthesia Complications: None
== END 2023-11-14 11:24 | disposition home or self-care (01) ==
LOC: SDS 11:23
PROVIDERS: ATTEND Surgery
PROC: 0DBK8ZX Excision of Ascending Colon, Via Natural or Artificial Opening Endoscopic, Diagnostic (ICD-10-PCS; principal; 2023-11-14 12:30)
DX: Z12.11 Encounter for screening for malignant neoplasm of colon (principal); D12.2 Benign neoplasm of ascending colon; K57.30 Diverticulosis of large intestine without perforation or abscess without bleeding; I10 Essential (primary) hypertension
CPT/HCPCS: 45380; J7120